=== PATIENT | male | born 1985 | race African-American/Black ===

== ENCOUNTER 2024-11-09 08:24 | Observation (INO) | payer OTHER ==
[2024-11-09 08:29] VITALS: PULSE 83; RESP 16; TEMP 98.6; BMI 30.5
[2024-11-09] MEDS ORDERED: IBUPROFEN 800 MG/8 ML IJ IVPB ONE (09:14)
[2024-11-09] MEDS ORDERED: IBUPROFEN 400 MG TABLET (FP) PO ONE (09:19)
[2024-11-09] MEDS: IBUPROFEN 400 MG TABLET (FP) PO ONE ×2 (09:22→09:24)
[2024-11-09] MEDS: IBUPROFEN 800 MG/8 ML IJ IVPB ONE (09:22)
[2024-11-09 09:57] LABS: BASO % 0.3 % (0-2.0); EOS % 0.4 % (0-4.5); HEMATOCRIT 46.4 % (35.4-49); HEMOGLOBIN 15.5 GM/dL (11.7-16.9); LYMPH % 14.2 % (8-40); MCH 26.6 pg (25.7-33.7); MCHC 33.3 g/dl (32.0-35.9); MEAN CELL VOLUME 79.7 fl (80-96); MEAN PLT VOLUME 8.2 fl (7.5-11.1); MONO % 6.6 % (3.8-10.2); NEUT % 78.5 % (42.8-82.8); PLATELET COUNT 348 10^3/uL (134-434); RBC 5.82 M/mm3 (4.00-5.60); RDW 15.1 % (11.9-15.9); WHITE BLOOD COUNT 14.7 K/mm3 (4.0-10.0)
[2024-11-09] MEDS ORDERED: NITROGLYCERIN SUBLINGUAL 1/150 0.4 MG TAB ONE (09:59)
[2024-11-09] MEDS: NITROGLYCERIN SUBLINGUAL 1/150 0.4 MG TAB SL ONE (10:04)
[2024-11-09 10:30] LABS: POTASSIUM 4.4 mmol/L (3.5-5.1)
[2024-11-09 10:34] LABS: CALCIUM 9.6 mg/dL (8.5-10.1)
[2024-11-09 10:35] LABS: ALBUMIN 4.2 g/dl (3.4-5.0); BLOOD UREA NITROGEN 14.5 mg/dL (7-18)
[2024-11-09 10:37] LABS: CREATININE 1.1 mg/dL (0.55-1.3)
[2024-11-09 10:39] LABS: BILIRUBIN,TOTAL 0.5 mg/dL (0.2-1); TOT PROT 7.9 g/dl (6.4-8.2)
[2024-11-09 11:02] LABS: ERYTHROCYTE SEDIMENTATION RATE 5 mm/hr (0-10)
[2024-11-09 11:11] VITALS: BP 134/94
== END 2024-11-09 14:44 | disposition home or self-care (01) ==
LOC: JER 08:24 → JERBED 13:00
PROC: HZ31ZZZ Individual Counseling for Substance Abuse Treatment, Behavioral (ICD-10-PCS; principal; 2024-11-09)
DX: R07.89 Other chest pain (principal); F17.210 Nicotine dependence, cigarettes, uncomplicated
CPT/HCPCS: 0241U-QW; 36415; 71046-TC-FY; 80053; 84484; 85025; 85651; 86140; 93005; 93010; 93306-TC; 93308; 99285-25; G0378